=== PATIENT | male | born 1950 | race Caucasian/White ===

== ENCOUNTER → 2018-12-07 | Outpatient (REF) | payer MEDICARE, OTHER | LOC: M LAB LCGH 13:01 | PROVIDERS: ATTEND Surgery | DX: Z86.010 Personal history of colon polyps (principal); Z80.0 Family history of malignant neoplasm of digestive organs ==

== ENCOUNTER 2024-12-31 06:40 | Day surgery (SDC) | payer MEDICARE ==
[~2024-12-31] VITALS: Ht 188 cm; Wt 84.5 kg
[~2024-12-31 06:40] MED LIST: AMLO1TAB24 PO; JANU50TA8 PO; LISI20TA35 PO; MULTTAB61 PO; POTA-136 PO; ROSU20TA86 PO; VITA100093 PO; XALA0.007
[2024-12-31] MEDS ORDERED: LR 1,000 ML IV SCH (07:00)
[2024-12-31] MEDS ORDERED: MIDAZOLAM INJ 2 MG/2 ML VIAL As Ordered ONE (07:05)
[2024-12-31] MEDS: PHENYLEPHRINE 2.5% OPHTH SOL 2ML OD SCH (07:47)
[2024-12-31] MEDS: CYCLOPENTOLATE 1% OPHTH SOLN 2 ML BTL OD SCH (07:47)
[2024-12-31] MEDS: FLURBIPROFEN 0.03% OPHTH SOLN 2.5 ML OD SCH (07:48)
[2024-12-31] MEDS: TETRACAINE 0.5% OPHTH SOLN 4ML OD SCH (07:48)
[2024-12-31] MEDS: LIDOCAINE 1% SDV 5 ML VIAL As Ordered ONE (08:42)
[2024-12-31] MEDS: CEFUROXIME 1 MG/0.1 ML INTRACAMERAL INJ As Ordered ONE (08:42)
[2024-12-31 09:22] VITALS: BP 135/71; TEMP 97.5; O2SAT 95
== END 2024-12-31 09:32 | disposition home or self-care (01) ==
LOC: M SDC 06:40
PROVIDERS: ATTEND Ophthalmology
DX: H25.9 Unspecified age-related cataract (principal); H40.1111 Primary open-angle glaucoma, right eye, mild stage; E11.9 Type 2 diabetes mellitus without complications; Z79.899 Other long term (current) drug therapy; Z82.49 Family history of ischemic heart disease and other diseases of the circulatory system; Z83.3 Family history of diabetes mellitus
CPT/HCPCS: 66991; C1783; J0697; J2250; J3010; V2788

== ENCOUNTER 2025-03-04 06:38 | Day surgery (SDC) | payer MEDICARE, BC ==
[~2025-03-04] VITALS: Ht 188 cm; Wt 82.7 kg
[~2025-03-04 06:38] MED LIST changes: +MIDAZOLAM INJ 2 MG/2 ML VIAL As Ordered ONE
[2025-03-04] MEDS ORDERED: LR 1,000 ML IV SCH (07:00)
[2025-03-04] MEDS: CYCLOPENTOLATE 1% OPHTH SOLN 2 ML BTL OS SCH (07:05)
[2025-03-04] MEDS: TETRACAINE 0.5% OPHTH SOLN 4ML OS SCH (07:06)
[2025-03-04] MEDS: PHENYLEPHRINE 2.5% OPHTH SOL 2ML OS SCH (07:06)
[2025-03-04] MEDS: FLURBIPROFEN 0.03% OPHTH SOLN 2.5 ML OS SCH (07:06)
[2025-03-04] MEDS: LIDOCAINE 1% SDV 5 ML VIAL As Ordered ONE (08:15)
[2025-03-04] MEDS: CEFUROXIME 1 MG/0.1 ML INTRACAMERAL INJ As Ordered ONE (08:15)
[2025-03-04] MEDS: PROVISC 10 MG/ML 0.85ML SYRINGE As Ordered ONE (08:21)
[2025-03-04 09:01] VITALS: BP 143/69; TEMP 97.1; O2SAT 96
== END 2025-03-04 09:15 | disposition home or self-care (01) ==
LOC: M SDC 06:38
PROVIDERS: ATTEND Ophthalmology
DX: E11.36 Type 2 diabetes mellitus with diabetic cataract (principal); H25.12 Age-related nuclear cataract, left eye; H40.1121 Primary open-angle glaucoma, left eye, mild stage; I10 Essential (primary) hypertension; E78.00 Pure hypercholesterolemia, unspecified; Z79.899 Other long term (current) drug therapy; Z79.84 Long term (current) use of oral hypoglycemic drugs; Z98.41 Cataract extraction status, right eye
CPT/HCPCS: 66991; A4649; C1783; J0697; J2250; J3010; V2788